=== PATIENT | male | born 1995 ===

== ENCOUNTER 2017-10-09 11:19 | Emergency (ER) | payer SELFPAY ==
[2017-10-09 11:21] VITALS: BP 133/78; PULSE 89; RESP 18; TEMP 36.6; O2SAT 100; BMI 26.0
== END 2017-10-09 12:15 | disposition left against medical advice (07) ==
LOC: ED 11:56
PROVIDERS: Emergency Provider Emergency Medicine
DX: R69 Illness, unspecified (principal)
CPT/HCPCS: 99283